=== PATIENT | male | born 1970 | race Caucasian/White ===

== ENCOUNTER → 2016-11-13 | Outpatient (CLI) | payer BC ==
[~2016-11-13] MED LIST: /OXAZ10CA; BABY81CH; FOLI1TAB; HYDR25TA6; LISI10TA4; LOPR50TA; PARO25TAB; THIA100T
[2016-11-15 14:34] LABS: PSA TOTAL 0.6 ng/mL (0.0-4.0)
== END ==
LOC: M SMT 13:28
PROVIDERS: ATTEND Family Medicine
DX: E29.1 Testicular hypofunction (principal)

== ENCOUNTER → 2018-10-07 | Outpatient (CLI) | payer BC | LOC: M SMT 08:10 | DX: Z00.00 Encounter for general adult medical examination without abnormal findings (principal); E55.9 Vitamin D deficiency, unspecified | CPT/HCPCS: 84403 ==

== ENCOUNTER → 2018-11-12 | Outpatient (CLI) | payer BC ==
[2018-11-12 17:30] LABS: BASO % 0.6 % (0.0-1.0); EOS # 0.1 10^3/uL (0.0-0.50); EOS % 1.7 % (0.0-3.0); HEMATOCRIT 43.3 % (42.0-52.0); LYMPH # 2.5 10^3/uL (1.5-4.5); LYMPH % 35.1 % (24.0-44.0); MEAN CORPUSCULAR HEMOGLOBIN 30.9 pg (27.0-33.0); MEAN CORPUSCULAR HGB CONC 34.6 g/dl (32.0-36.5); MEAN CORPUSCULAR VOLUME 89.1 fl (80.0-96.0); MONO # 0.6 10^3/uL (0.0-0.8); MONO % 8.4 % (0.0-5.0); NEUTROPHILS # 3.9 10^3/uL (1.8-7.7); NEUTROPHILS % 53.9 % (36.0-66.0); PLATELET COUNT, AUTOMATED 280 10^3/uL (150-450); RED BLOOD COUNT 4.86 10^6/uL (4.30-6.10); WHITE BLOOD COUNT 7.2 10^3/uL (4.0-10.0)
[2018-11-12 17:32] LABS: ALBUMIN 3.9 GM/DL (3.2-5.2); ALT/SGPT 38 U/L (12-78); AMYLASE 60 U/L (25-115); BILIRUBIN,TOTAL 0.3 MG/DL (0.2-1.0); BLOOD UREA NITROGEN 20 MG/DL (7-18); CALCIUM LEVEL 8.8 MG/DL (8.5-10.1); CARBON DIOXIDE LEVEL 28 MEQ/L (21-32); CHLORIDE LEVEL 106 MEQ/L (98-107); CHOLESTEROL LEVEL 144 MG/DL (<200); CHOLESTEROL RISK RATIO 4.363 (<5); GLOMERULAR FILTRATION RATE > 60.0 (>60); GLUCOSE, FASTING 91 MG/DL (70-100); HDL CHOLESTEROL 33 MG/DL (>40); LDL CHOLESTEROL 81 MG/DL (<100); LIPASE 153 U/L (73-393); NON-HDL-C 111 MG/DL; SODIUM LEVEL 141 MEQ/L (136-145); TOTAL PROTEIN 6.8 GM/DL (6.4-8.2); TRIGLYCERIDES LEVEL 148 MG/DL (<150)
== END ==
LOC: M SMT 14:03
PROVIDERS: ATTEND Physician Assistant
DX: R10.31 Right lower quadrant pain (principal)

== ENCOUNTER → 2018-12-06 | Outpatient (REF) | payer BC ==
[2018-12-06 18:56] LABS: ALBUMIN 4.2 GM/DL (3.2-5.2); ALT/SGPT 34 U/L (12-78); BILIRUBIN,TOTAL 0.8 MG/DL (0.2-1.0); BLOOD UREA NITROGEN 19 MG/DL (7-18); CALCIUM LEVEL 8.8 MG/DL (8.5-10.1); CARBON DIOXIDE LEVEL 29 MEQ/L (21-32); CHLORIDE LEVEL 105 MEQ/L (98-107); CHOLESTEROL LEVEL 179 MG/DL (<200); CHOLESTEROL RISK RATIO 4.589 (<5); CREATININE FOR GFR 1.08 MG/DL (0.70-1.30); FREE T4 1.15 NG/DL (0.76-1.46); GLOMERULAR FILTRATION RATE > 60.0 (>60); GLUCOSE, FASTING 95 MG/DL (70-100); HDL CHOLESTEROL 39 MG/DL (>40); LDL CHOLESTEROL 130 MG/DL (<100); NON-HDL-C 140 MG/DL; POTASSIUM SERUM 4.7 MEQ/L (3.5-5.1); SODIUM LEVEL 139 MEQ/L (136-145); THYROID STIMULATING HORMONE 0.614 uIU/ML (0.358-3.740); TOTAL PROTEIN 7.1 GM/DL (6.4-8.2); TRIGLYCERIDES LEVEL 52 MG/DL (<150)
[2018-12-06 18:58] LABS: TOTAL 25(OH) VITAMIN D 31.6 NG/ML (30.0-100.0)
[2018-12-09 00:09] LABS: PSA TOTAL 0.6 ng/mL (0.0-4.0)
== END ==
LOC: M LABDRAW1 11:37
PROVIDERS: ATTEND Physician Assistant
DX: Z00.00 Encounter for general adult medical examination without abnormal findings (principal); E29.1 Testicular hypofunction; Z13.1 Encounter for screening for diabetes mellitus; Z13.220 Encounter for screening for lipoid disorders

== ENCOUNTER 2019-01-22 19:07 | Inpatient (IN) | payer BC ==
[~2019-01-22] VITALS: Ht 177.8 cm; Wt 91.3 kg
[2019-01-22] MEDS ORDERED: EXCETAB80 PO (19:18)
[2019-01-22 19:31] LABS: MEAN CORPUSCULAR HEMOGLOBIN 30.9 pg (27.0-33.0); MEAN CORPUSCULAR HGB CONC 35.1 g/dl (32.0-36.5); MEAN CORPUSCULAR VOLUME 88.1 fl (80.0-96.0); PLATELET COUNT, AUTOMATED 317 10^3/uL (150-450); RED BLOOD COUNT 5.86 10^6/uL (4.30-6.10); WHITE BLOOD COUNT 12.9 10^3/uL (4.0-10.0)
[2019-01-22 19:40] LABS: HEMATOCRIT 51.6 % (42.0-52.0); HEMOGLOBIN 18.1 g/dl (13.5-17.5)
[2019-01-22] MEDS ORDERED: METOPROLOL TART 50 MG TAB PO ONE (19:45)
[2019-01-22] MEDS: METOPROLOL 5 MG/5 ML VIAL IV SCH ×3 (20:04→20:50)
[2019-01-22 20:15] LABS: BLOOD UREA NITROGEN 17 MG/DL (7-18); CALCIUM LEVEL 9.4 MG/DL (8.5-10.1); CARBON DIOXIDE LEVEL 24 MEQ/L (21-32); CHLORIDE LEVEL 106 MEQ/L (98-107); CREATININE FOR GFR 1.28 MG/DL (0.70-1.30); ETHYL ALCOHOL (ETHANOL) < 0.003 % (0.000-0.010); GLOMERULAR FILTRATION RATE > 60.0 (>60); GLUCOSE, FASTING 111 MG/DL (70-100); MAGNESIUM LEVEL 1.6 MG/DL (1.8-2.4); POTASSIUM SERUM 4.3 MEQ/L (3.5-5.1); SODIUM LEVEL 141 MEQ/L (136-145)
--- NOTE | 2019-01-22 20:20 | REP ---
Clinical: Headache and dizziness . Comparison: None . Findings: The ventricles, sulci, and cisterns are normal in position and appearance. Clayton-white differentiation is maintained. No acute intracranial hemorrhage, mass/mass effect, pathology or trauma/injury. No evidence for acute infarction. No extra-axial fluid collection. Calvarium is intact. Paranasal sinuses and mastoid air cells are clear. Incidental chronic calcifications along the tentorium. Impression: No evidence for acute intracranial pathology or trauma/injury. Electronically Signed by Mikael Flores MD 01/22/2019 08:11 P
[2019-01-22] MEDS ORDERED: MAG SULF 1GM/100ML (MAG RUN) 1 GM in APPROPRIATE DILUENT 1 EA IV ONE (20:30)
[2019-01-22 21:20] LABS: AMPHETAMINES LEVEL URINE NEGATIVE (NEGATIVE); BARBITURATES URINE NEGATIVE (NEGATIVE); BENZODIAZEPINES URINE NEGATIVE (NEGATIVE); CANNABINOIDS URINE NEGATIVE (NEGATIVE); COCAINE METABOLITE URINE NEGATIVE (NEGATIVE); METHADONE URINE NEGATIVE (NEGATIVE); OPIATES URINE NEGATIVE (NEGATIVE); PHENCYCLIDINE URINE NEGATIVE (NEGATIVE)
[2019-01-22] MEDS ORDERED: APIXABAN 5 MG TAB (ELIQUIS) PO ONE (22:15)
[2019-01-22] MEDS ORDERED: FLECAINIDE 50MG TABLET PO ONE (22:15)
[2019-01-22] MEDS ORDERED: TEST1GEL10 TOP (22:17)
[2019-01-22] MEDS ORDERED: TEST1GEL8 TOP (22:20)
[2019-01-22 22:56] LABS: INR 1.06; PROTHROMBIN TIME 13.9 SECONDS (12.1-14.4)
[2019-01-22 22:57] LABS: PARTIAL THROMBOPLASTIN TIME 35.5 SECONDS (25.4-37.6)
[2019-01-22] MEDS ORDERED: NS 1,000 ML IV SCH (23:00)
[2019-01-22 23:27] LABS: TROPONIN I < 0.02 NG/ML (< 0.10)
[2019-01-23] VITALS (8 sets, daily range): BP systolic 96–131; BP diastolic 60–84
[2019-01-23 05:34] LABS: HEMATOCRIT 45.2 % (42.0-52.0); MEAN CORPUSCULAR HEMOGLOBIN 30.6 pg (27.0-33.0); MEAN CORPUSCULAR HGB CONC 34.5 g/dl (32.0-36.5); MEAN CORPUSCULAR VOLUME 88.8 fl (80.0-96.0); PLATELET COUNT, AUTOMATED 270 10^3/uL (150-450); RED BLOOD COUNT 5.09 10^6/uL (4.30-6.10); WHITE BLOOD COUNT 11.4 10^3/uL (4.0-10.0)
[2019-01-23 05:43] LABS: HEMOGLOBIN 15.6 g/dl (13.5-17.5)
[2019-01-23 06:00] LABS: BLOOD UREA NITROGEN 16 MG/DL (7-18); CALCIUM LEVEL 7.9 MG/DL (8.5-10.1); CARBON DIOXIDE LEVEL 27 MEQ/L (21-32); CHLORIDE LEVEL 109 MEQ/L (98-107); CREATININE FOR GFR 1.04 MG/DL (0.70-1.30); GLOMERULAR FILTRATION RATE > 60.0 (>60); GLUCOSE, FASTING 88 MG/DL (70-100); MAGNESIUM LEVEL 1.8 MG/DL (1.8-2.4); POTASSIUM SERUM 3.4 MEQ/L (3.5-5.1); SODIUM LEVEL 143 MEQ/L (136-145); TROPONIN I < 0.02 NG/ML (< 0.10)
[2019-01-23] MEDS: APIXABAN 5 MG TAB (ELIQUIS) PO SCH ×2 (08:05→19:59)
[2019-01-23] MEDS: METOPROLOL TART 25 MG TABLET PO SCH ×2 (08:05→19:59)
--- NOTE | 2019-01-23 08:56 | HPE ---
DATE OF ADMISSION: 01/22/2019 CHIEF COMPLAINT: Dizziness and irregular heartbeat. HISTORY OF PRESENT ILLNESS: The patient is a 48-year-old male who has a history of lone atrial fibrillation back in 2008 which was attributed to EtOH abuse. He has since not consumed any alcohol since 2008 after this episode of lone atrial fibrillation. He also has what appears to be testosterone deficiency. He presented to the emergency room with complaints of what started this morning as irregular heartbeat, dizziness. He denies any chest pain or shortness of breath. He does not endorse his irregular heartbeat as palpitations. He just states that he felt an abnormal heartbeat. He denies any loss of consciousness. He was previously followed by Dr. Cardoza. Once his atrial fibrillation had resolved it was attributed to alcohol abuse and he was never again followed up after several visits and he was noted to be in sinus rhythm. He comes in, he is in atrial fibrillation with rapid ventricular response (RVR). He was given several doses of IV Lopressor which allowed him to become rate controlled. [employer] Dr. Kan was consulted in the emergency room who recommended the patient be given flecainide and Eliquis in an attempt to cardiovert the patient chemically. Echocardiogram to be added. The patient is aware that these symptoms started within the last 48 hours. He denies any cough. He denies any fevers, chills. No abdominal pain, constipation, diarrhea or urinary symptoms. He does not appear acutely toxic. He denies any alcohol abuse. Notably he said the only thing different that he has done is taken Excedrin last night and this morning for what he considered be a migraines headaches. PAST MEDICAL HISTORY: See history of present illness. PAST SURGICAL HISTORY: None. ALLERGIES: No known drug allergies. HOME MEDICATIONS: - testosterone replacement therapy, he uses a gel SOCIAL HISTORY: Former alcohol abuse. Denies illicit drug use. FAMILY HISTORY: Cerebrovascular accident (CVA). REVIEW OF SYSTEMS: A 12 point review of systems was completed, all of which were negative except those listed in the history of present illness. VITAL SIGNS ON ADMISSION: Temperature 98, pulse rate of 119, respirations 18, blood pressure 103/75, satting at 100% on room air. PHYSICAL EXAMINATION: GENERAL: Well nourished, in no apparent distress. HEAD: Normocephalic, atraumatic. EYES: Extraocular movements are intact. Pupils equal, round, reactive to light. NECK: Supple. No jugular venous pressure (JVP). LUNGS: Clear to auscultation. No crackles, wheezes, rales or rhonchi. CARDIOVASCULAR: Irregularly irregular rhythm. Normal S1 and S2. No murmurs, gallops, or rubs. ABDOMEN: Soft, nontender, nondistended. Positive bowel sounds. No rebound or guarding. EXTREMITIES: No pitting edema or calf tenderness. SKIN: Intact. No rashes, lesions or breakdowns. NEUROLOGICAL EXAM: Alert and oriented times three. No focal deficits appreciated on exam. LABS AND IMAGING COMPLETED IN THE EMERGENCY ROOM: White count of 12, hemoglobin and hematocrit of 18/51, platelet count of 317. Coags within normal limits. BUN and creatinine of 17/1.28. Mag of 1.6, TSH within normal limits. Urine toxicology is negative. Blood alcohol level is unremarkable. IMAGING: CT of the head shows no acute intracranial pathology. ASSESSMENT/PLAN: Atrial fibrillation with rapid ventricular response (RVR), rule out ACS. Will recycle troponins, EKG, tele. Will get an echocardiogram. Give him one dose of flecainide. CHADS-VASc score is 0. Cardiology would like to attempt to chemically cardiovert the patient, so will place the patient on Eliquis 5 mg twice a day. Cardiology to follow-up in the a.m. This could possibly be due to electrolyte abnormalities. Will replenish his magnesium and recheck in the a.m. TSH already within normal limits. There appears to be no infectious process ongoing. The patient appears nontoxic. Supportive deep vein thrombosis (DVT) prophylaxis, on Eliquis. Gastrointestinal (GI) prophylaxis not indicated. Diet. Cardiac. Patient is to be seen by cardiology in the a.m. to decide if extra doses of flecainide need to be continued for cardioversion.
[2019-01-23] MEDS: FLECAINIDE 50MG TABLET PO SCH ×2 (10:12→19:59)
--- NOTE | 2019-01-23 11:06 | ECGEPIP ---
Stationary ECG Study [facility] - ED Test Date: 2019-01-22 Pat Name: ALLISON WARD Department: Room: [place] [address] Gender: M Foundation Assistant: MELLO : 1970 Requested By: Joe Leo Order Number: [id number] Reading MD: Mauricio Gasca Measurements Intervals [place] Rate: 129 P: WI: 0 QRS: 48 QRSD: 89 T: -8 QT: 275 QTc: 403 Interpretive Statements ATRIAL FIBRILLATION WITH RAPID VENTRICULAR RESPONSE NONSPECIFIC ST & T-WAVE ABNORMALITY ABNORMAL RHYTHM ECG DELAYED R WAVE PROGRESSION CW 08/21/14 RATE INCREASED RHYTHM CHANGE Electronically Signed On 01-23-2019 11:06:03 EDT by Mauricio Gasca
[2019-01-23] MEDS ORDERED: FLECAINIDE 50MG TABLET PO ONE (14:00)
[2019-01-23] MEDS ORDERED: POTASSIUM CHLORIDE 10 MEQ SR TABLET PO ONE ×2 (14:15→18:00)
--- NOTE | 2019-01-23 23:05 | ECGEPIP ---
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 HEART RATE IS NOW SLOWER OTHERWISE NO SIGNIFICANT CHANGES Electronically Signed On 01-23-2019 23:05:10 EDT by Yohannes Kan
--- NOTE | 2019-01-24 03:00 | CR ---
DATE OF CONSULTATION: 01/23/2019 CARDIOLOGY CONSULTATION: REFERRING PROVIDER: Snow Carl DO REASON FOR CONSULTATION: Atrial fibrillation. HISTORY OF PRESENT ILLNESS: A 48-year-old male with a history of paroxysmal atrial fibrillation about 10 years ago and, at that time, that was associated with a binge of alcohol. He has not been drinking since that time and has been doing well without any episode of paroxysmal atrial fibrillation. On the day prior to coming to the hospital, he was having a headache and took one Excedrin, which he repeated on the morning of his visit to the emergency room (ER). On that morning, he started having a funny sensation in the chest associated with generalized weakness; and because he was not getting better, he came to the ER in the early evening hours. He was found to be in atrial fibrillation with a rapid ventricular rate, and cardiology consult was called. He was treated in the ER with IV Lopressor as well as oral Lopressor. After discussing with the ER provider, he was given one dose of flecainide 50 mg by mouth daily and admitted to progressive care unit (PCU) for further management and monitoring. When I saw Mr. Kevin Heller this morning, he was supine in bed in no acute distress at rest. He stated he feels better, but his heart rate is still irregular. It is not going fast. He denies any associated chest pain, syncope, or near syncope. He, however, was diaphoretic while at home. Upon arrival at the ER, his vital signs revealed a blood pressure of 103/75 and his pulse was reported at that time between 140 and 150 beats per minute. He has no pedal edema, orthopnea, syncope, or near syncope. He denies any bleeding. He has no cough, hemoptysis, or fever. He has no nausea, vomiting, diarrhea, melena, or hematemesis. There is no active swelling or redness of the joints. MEDICATIONS AT HOME: Testosterone replacement gel; otherwise, unknown. PAST SURGICAL HISTORY: Positive for hernia repair, umbilical and inguinal. FAMILY HISTORY: Positive for heart disease but did not elaborate. CURRENT MEDICATIONS: - metoprolol tartrate 25 mg by mouth twice a day - apixaban 5 mg by mouth twice a day SOCIAL HISTORY: Patient denies any smoking or ethyl alcohol (EtOH) abuse. He also had cut back significantly caffeine in his diet. ALLERGIES: He has no known drug allergies. ADVANCE DIRECTIVES: Patient is a FULL CODE. PHYSICAL EXAMINATION: Patient is alert and oriented, in no acute distress at rest, and his vital signs when I saw him revealed a blood pressure of 124/65 with a pulse of 90, respirations 18, and his maximum temperature was 98.2 degrees Fahrenheit with an oxygen saturation of 97% on room air. Examination of the head: Atraumatic. Neck is supple; no jugular venous distention (JVD) or carotid bruits. The lungs are clear bilaterally on auscultation without any wheezing or crackles. The heart examination revealed normal S1 and S2 without gallops. The point of maximum impulse (PMI) is not displaced. There is no rub. I could not appreciate any murmurs. Abdomen is soft and nontender; bowel sounds are active. Extremities revealed no pedal edema. No cyanosis or clubbing. Peripheral pulses are +2 and equal. Neurological examination is negative for focal deficit. LABS: CBC revealed WBC of 11.4, hemoglobin 15.6, hematocrit 45.2, and platelets 270,000. BMP done today, 01/23/2019, revealed a sodium of 143, potassium 3.4, chloride 109, CO2 of 27, BUN 16, creatinine 1.04, GFR more than 60, fasting glucose 88, calcium 7.9. Serum magnesium is 1.8. Serum magnesium on admission was 1.6. Serum troponin is normal, less than 0.02. Serum TSH is 0.670. Serum potassium on admission was 4.3. PT on admission was 13.9 with an INR of 1.05 and a PTT of 35.5. Toxicology screening was negative. Head CT on admission revealed no evidence of acute intracranial pathology or trauma/injury. Electrocardiogram on admission in the ER revealed atrial fibrillation at a rate of 129 beats per minute and nonspecific ST-T abnormalities, mild intraventricular conduction delay (IVCD). IMPRESSION: 1. Atrial fibrillation, paroxysmal in nature, and at this present time while I am dictating the note, I was just informed by the nurse patient is in normal sinus rhythm. We will continue with the Eliquis as well as the beta-bjorn/metoprolol tartrate and the flecainide. He had an echocardiogram done just now, and it will be reviewed; then further recommendation will be given. He most likely will not need the Eliquis for a long time, but I would prefer that he be discharged on Eliquis for now instead of aspirin for better coverage against thromboembolic events. Otherwise, we will have to give him the aspirin plus Plavix. 2. Status post hypomagnesemia. 3. Hypokalemia, and this is being addressed. 4. Testosterone deficiency, on supplement. It was a pleasure to participate in the care of . Kevin Heller for his underlying cardiac condition. He seems to be stable from a cardiac point of view and might be able to be discharged home later today. Case was discussed earlier with his hospitalist.
[2019-01-24 04:00] VITALS: BP 111/59
[2019-01-24 05:46] LABS: HEMATOCRIT 47.7 % (42.0-52.0); HEMOGLOBIN 15.9 g/dl (13.5-17.5); MEAN CORPUSCULAR HEMOGLOBIN 30.5 pg (27.0-33.0); MEAN CORPUSCULAR HGB CONC 33.3 g/dl (32.0-36.5); MEAN CORPUSCULAR VOLUME 91.4 fl (80.0-96.0); PLATELET COUNT, AUTOMATED 244 10^3/uL (150-450); RED BLOOD COUNT 5.22 10^6/uL (4.30-6.10); WHITE BLOOD COUNT 8.4 10^3/uL (4.0-10.0)
[2019-01-24 06:09] LABS: BLOOD UREA NITROGEN 17 MG/DL (7-18); CALCIUM LEVEL 8.4 MG/DL (8.5-10.1); CARBON DIOXIDE LEVEL 27 MEQ/L (21-32); CHLORIDE LEVEL 111 MEQ/L (98-107); CREATININE FOR GFR 1.12 MG/DL (0.70-1.30); GLOMERULAR FILTRATION RATE > 60.0 (>60); GLUCOSE, FASTING 85 MG/DL (70-100); POTASSIUM SERUM 4.4 MEQ/L (3.5-5.1); SODIUM LEVEL 144 MEQ/L (136-145)
[2019-01-24 08:00] VITALS: BP 125/79
[2019-01-24] MEDS ORDERED: ELIQ5TAB PO (08:21)
[2019-01-24] MEDS ORDERED: FLEC25TA PO (08:21)
[2019-01-24] MEDS ORDERED: METO1TAB87 PO (08:21)
[2019-01-24] MEDS: APIXABAN 5 MG TAB (ELIQUIS) PO SCH (08:58)
[2019-01-24 08:59] VITALS: BP 125/79
[2019-01-24] MEDS: METOPROLOL TART 25 MG TABLET PO SCH (08:59)
[2019-01-24] MEDS: FLECAINIDE 50MG TABLET PO SCH (08:59)
--- NOTE | 2019-01-24 09:59 | ECHO ---
DATE OF PROCEDURE: 01/23/2019 DATE OF : 1970 AGE: 48 REFERRING PROVIDER: Dr. Spence Thursday. PATIENT LOCATION: Room 3211. REASON FOR ECHOCARDIOGRAM: Abnormal EKG. 2D MEASUREMENTS: IVS: 1.0 cm LV: 4.8 cm LVPW: 1.1 cm LA: 4.0 cm Aorta: 3.4 cm IVC: 1.9 cm DOPPLER MEASUREMENTS: Peak velocity across the aortic valve: 0.81 m/s Peak velocity across the LVOT: 0.84 m/s Mitral E: 0.60 Mitral A: 0.44 Ratio 1.4 Maximum tricuspid valve velocity: 2.1 m/s 2D COMMENTS: 1. Normal left ventricular size and systolic function. Left ventricular wall thickness appear to be increased. The estimated global left ventricular systolic ejection fraction is 65% to 70%. 2. Borderline enlarged left atrium at 4.0 cm. Normal right atrium and right ventricle. 3. The atrial septum appeared to be normal without evidence of defect or shunt. 4. Normal aortic root. 5. No pericardial effusion seen. 6. The aortic valve, mitral valve, tricuspid valve, and pulmonary valve appear to be normal. The proximal pulmonary artery branches also appear to be normal. 7. The inferior vena cava was normal in size, central venous pressure is most likely normal. DOPPLER: It detects mild to moderate mitral regurgitation and trace tricuspid regurgitation. The calculated pulmonary artery systolic pressure was normal. Assessment of the left ventricular diastolic function appeared to be normal. IMPRESSION: 1. Normal global left ventricular systolic and diastolic function. , there was mild concentric left ventricular hypertrophy. 2. Mildly dilated left atrium with mild to moderate mitral regurgitation. 3. Trace tricuspid regurgitation with a normal calculated pulmonary artery systolic pressure. 4. Patient while having the echocardiogram, spontaneously cardioverted to a normal sinus rhythm.
--- NOTE | 2019-01-24 15:43 | IPN ---
DATE OF VISIT: 01/23/2019 SUBJECTIVE: The patient is seen and examined in the room today. The patient denies any chest pain or palpitations, denies any shortness of breath. The patient had atrial fibrillation in 2007 due to alcohol usage and he states since then he has not had significant alcohol consumption. OBJECTIVE: VITAL SIGNS: Temperature 98.2, pulse 90, respirations 18, blood pressure 124/65, pulse ox 97% on room air. GENERAL: The patient is alert and awake and comfortable. HEENT: Normocephalic, atraumatic. Extraocular movements grossly intact. CARDIOVASCULAR: Irregular, irregular. Positive S1, S2. LUNGS: Clear to auscultation bilaterally. ABDOMEN: Soft, nontender, nondistended. Bowel sounds present. EXTREMITIES: No edema appreciated. LABORATORY DATA: WBC 11.4, hemoglobin 15.6, hematocrit 45.2, platelet count of 270. Sodium 143, potassium 3.4, chloride 109, carbon dioxide 27, BUN 16, creatinine 104, GFR greater than 60, fasting glucose 88. Calcium 7.9, magnesium 1.8, troponin I is less than 0.02. 1. Atrial fibrillation with rapid ventricular rate (RVR). Troponin has been negative. Will follow with echocardiogram, cardiology consulted. The patient is currently on beta bjorn. The patient will receive additional dose of flecainide per cardiology. Currently will attempt to chemical convert the patient. The patient denies any recent alcohol history. TSH remains in the normal range. Denies any recent medication change or lifestyle modifications. 2. Mild leukocytosis. Suspected due to physical stress. Continue to monitor. No obvious signs of infections. 3. Mild hypokalemia. Continue to follow levels, supplement as needed. 4. Deep venous thrombosis (DVT) prophylaxis. On Eliquis.
--- NOTE | 2019-01-24 19:22 | DSES ---
DATE OF ADMISSION: 01/22/2019 DATE OF DISCHARGE: 01/24/2019 PRIMARY CARE PROVIDER: Dr. Farah CONSULTANTS: Cardiology DISCHARGE DIAGNOSES: 1. Atrial fibrillation with rapid ventricular response. 2. Mild leukocytosis. 3. Mild hypokalemia. 4. Remote history of alcohol abuse. HOSPITAL COURSE: The patient is a 48-year-old gentleman who presented to [facility] on 01/22/2019 with the complaint of dizziness and irregular heart rate. The patient was admitted under the hospitalist service on the telemetry floor for atrial fibrillation with rapid ventricular response. Cardiology consulted. The patient was started on rate control medications. Later, the patient's heart rate converted to sinus, and the patient was determined stable for discharge on 01/24/2019 with recommendations to continue heart rate medication. The patient continued taking anticoagulation. The patient should followup with cardiology in 2 weeks. OBJECTIVE: On the day of discharge, temperature 99.2, pulse 67, respirations 20, blood pressure 125/79, pulse oximetry 100% on room air. LABORATORY DATA: WBC 8.4, hemoglobin 15.9, hematocrit 47.7, platelet count is 244, sodium is 144, potassium 4.4, chloride 111, carbon dioxide 27, BUN 17, creatinine 1.12, GFR greater than 60, fasting glucose 85. During the hospitalization, troponin was less than 0.02 times three sets. TSH is 0.67. Urine toxicology negative. Alcohol level is negative. IMAGING STUDIES: CT of the head without contrast showed no evidence of acute intracranial pathology or trauma/injury. DISCHARGE MEDICATIONS: - Eliquis 5 mg by mouth twice a day - flecainide 50 mg by mouth every 12 hours - metoprolol tartrate 75 mg by mouth twice a day - testosterone pump 1% gel four pumps topical at night DISCHARGE INSTRUCTIONS: Discontinue lines. Discharge home. Activity as tolerated. Diet as tolerated. The patient should follow with primary care provider in 1 to 2 weeks. The patient should followup with Dr. Kan in 2 weeks. DISCHARGE CONDITION: Fair. DISCHARGE TIME: Greater than 30 minutes.
== END 2019-01-24 10:44 | disposition home or self-care (01) | DRG 201 ==
LOC: M ED 19:07 → M ED INP 22:46 → M PCU 01-23 00:15
PROVIDERS: ADMIT Internal Medicine; ATTEND Internal Medicine
DX: I48.91 Unspecified atrial fibrillation (principal); E83.42 Hypomagnesemia; D72.829 Elevated white blood cell count, unspecified; E87.6 Hypokalemia; Z79.899 Other long term (current) drug therapy; E29.1 Testicular hypofunction

== ENCOUNTER → 2019-06-28 | Outpatient (CLI) | payer BC ==
[~2019-06-28] MED LIST changes: -/OXAZ10CA; +ELIQ5TAB PO; +EXCETAB80 PO; +FLEC25TA PO; +METO1TAB87 PO; +OXAZ10CA25; +TEST1GEL10 TOP; +TEST1GEL8 TOP
--- NOTE | 2019-06-30 12:54 | SLEEPHOME ---
DATE OF STUDY: 06/29/2019 ORDERING PROVIDER: Ron Kathleen Diagnostic home sleep testing was performed due to concern for the obstructive sleep apnea syndrome in this patient with a history of excessive somnolence. Bly sleepiness score of 22. For testing, a nocturnal T3 respiratory monitoring device was used. Continuous record was made of pulse, oxygen saturation, airflow, chest and abdominal strain and body position. 9 hours and 59 minutes of data were reviewed. There were 5 hours and 34 minutes marked as time in bed. During the interval marked time in bed, there were 77 respiratory events identified of 10 seconds in duration or greater for a respiratory event index of 13.8. The events were primarily obstructive, 11 mixed and central apneas were seen. Baseline pulse rate 59 beats per minute, pulse rate ranged 50-86. Baseline saturation 93%. Saturations fell to 84%. Testing was performed in both the supine and non-supine positions. IMPRESSION: Abnormal home sleep testing with repetitive respiratory events and oxygen desaturations to 84% with a respiratory event index of 13.8 is consistent with the obstructive sleep apnea syndrome. RECOMMENDATION: The patient should be encouraged to undergo formal sleep evaluation. [facility]
== END ==
LOC: M SLEEP HO 10:29
PROVIDERS: ATTEND Physician Assistant
DX: G47.8 Other sleep disorders (principal)

== ENCOUNTER → 2019-06-30 | Outpatient (CLI) | payer BC ==
[2019-06-30 10:26] LABS: BASO % 0.5 % (0.0-1.0); EOS # 0.1 10^3/uL (0.0-0.5); EOS % 1.6 % (0.0-3.0); HEMATOCRIT 46.2 % (42.0-52.0); HEMOGLOBIN 15.9 g/dl (13.5-17.5); LYMPH # 1.7 10^3/uL (1.5-5.0); MEAN CORPUSCULAR HEMOGLOBIN 31.7 pg (27.0-33.0); MEAN CORPUSCULAR HGB CONC 34.4 g/dl (32.0-36.5); MONO # 0.5 10^3/uL (0.0-0.8); NEUTROPHILS % 63.4 % (36.0-66.0); PLATELET COUNT, AUTOMATED 236 10^3/uL (150-450); RED BLOOD COUNT 5.02 10^6/uL (4.30-6.10); WHITE BLOOD COUNT 6.3 10^3/uL (4.0-10.0)
[2019-06-30 10:34] LABS: ALBUMIN 3.9 GM/DL (3.2-5.2); ALT/SGPT 33 U/L (12-78); BILIRUBIN,TOTAL 1.2 MG/DL (0.2-1.0); BLOOD UREA NITROGEN 15 MG/DL (7-18); CALCIUM LEVEL 9.1 MG/DL (8.5-10.1); CARBON DIOXIDE LEVEL 30 MEQ/L (21-32); CHLORIDE LEVEL 107 MEQ/L (98-107); CREATININE FOR GFR 0.92 MG/DL (0.70-1.30); GLOMERULAR FILTRATION RATE > 60.0 (>60); GLUCOSE, FASTING 86 MG/DL (70-100); POTASSIUM SERUM 4.3 MEQ/L (3.5-5.1); SODIUM LEVEL 142 MEQ/L (136-145); TOTAL PROTEIN 7.1 GM/DL (6.4-8.2)
[2019-07-02 00:06] LABS: PSA TOTAL 0.7 ng/mL (0.0-4.0); TESTOSTERONE FREE (DIRECT) 10.6 pg/mL (6.8-21.5)
== END ==
LOC: M SMT 08:00
PROVIDERS: ATTEND Family Medicine
DX: E29.1 Testicular hypofunction (principal); E55.9 Vitamin D deficiency, unspecified; I48.0 Paroxysmal atrial fibrillation

== ENCOUNTER → 2019-12-02 | Outpatient (REF) | payer BC ==
[2019-12-02 15:48] LABS: BASO % 0.4 % (0.0-1.0); EOS # 0.2 10^3/uL (0.0-0.5); EOS % 2.1 % (0.0-3.0); HEMOGLOBIN 16.1 g/dl (13.5-17.5); LYMPH # 2.4 10^3/uL (1.5-5.0); LYMPH % 34.3 % (24.0-44.0); MEAN CORPUSCULAR HEMOGLOBIN 30.8 pg (27.0-33.0); MEAN CORPUSCULAR HGB CONC 33.5 g/dl (32.0-36.5); MONO # 0.6 10^3/uL (0.0-0.8); MONO % 8.1 % (0.0-5.0); NEUTROPHILS # 3.9 10^3/uL (1.5-8.5); PLATELET COUNT, AUTOMATED 268 10^3/uL (150-450); RED BLOOD COUNT 5.22 10^6/uL (4.30-6.10); WHITE BLOOD COUNT 7.1 10^3/uL (4.0-10.0)
[2019-12-02 16:27] LABS: ALT/SGPT 35 U/L (12-78); BILIRUBIN,TOTAL 0.6 MG/DL (0.2-1.0); BLOOD UREA NITROGEN 15 MG/DL (7-18); CALCIUM LEVEL 8.9 MG/DL (8.5-10.1); CARBON DIOXIDE LEVEL 30 MEQ/L (21-32); CHLORIDE LEVEL 105 MEQ/L (98-107); CREATININE FOR GFR 0.94 MG/DL (0.70-1.30); FREE T4 1.23 NG/DL (0.76-1.46); GLOMERULAR FILTRATION RATE > 60.0 (>60); GLUCOSE, FASTING 82 MG/DL (70-100); POTASSIUM SERUM 4.1 MEQ/L (3.5-5.1); SODIUM LEVEL 140 MEQ/L (136-145)
[2019-12-07 00:06] LABS: PSA TOTAL 0.6 ng/mL (0.0-4.0); TESTOSTERONE FREE (DIRECT) 17.7 pg/mL (6.8-21.5)
== END ==
LOC: M LABDRAW1 15:40
PROVIDERS: ATTEND Physician Assistant
DX: I48.0 Paroxysmal atrial fibrillation (principal); E29.1 Testicular hypofunction

== ENCOUNTER → 2021-01-10 | Outpatient (REF) | payer BC ==
[2021-01-10 12:52] LABS: BASO # 0.1 10^3/uL (0.0-0.2); BASO % 0.7 % (0.0-1.0); EOS # 0.1 10^3/uL (0.0-0.5); EOS % 1.6 % (0.0-3.0); HEMATOCRIT 46.4 % (42.0-52.0); LYMPH # 1.8 10^3/uL (1.5-5.0); LYMPH % 23.3 % (24.0-44.0); MEAN CORPUSCULAR HEMOGLOBIN 31.4 pg (27.0-33.0); MEAN CORPUSCULAR HGB CONC 34.5 g/dl (32.0-36.5); MONO # 0.7 10^3/uL (0.0-0.8); MONO % 9.6 % (2.0-8.0); NEUTROPHILS # 4.8 10^3/uL (1.5-8.5); NEUTROPHILS % 64.4 % (36.0-66.0); PLATELET COUNT, AUTOMATED 272 10^3/uL (150-450); WHITE BLOOD COUNT 7.5 10^3/uL (4.0-10.0)
[2021-01-10 13:31] LABS: ALBUMIN 3.9 GM/DL (3.2-5.2); ALT/SGPT 29 U/L (12-78); BILIRUBIN,TOTAL 0.5 MG/DL (0.2-1.0); BLOOD UREA NITROGEN 20 MG/DL (7-18); CALCIUM LEVEL 8.7 MG/DL (8.5-10.1); CARBON DIOXIDE LEVEL 30 MEQ/L (21-32); CHLORIDE LEVEL 106 MEQ/L (98-107); CREATININE FOR GFR 0.86 MG/DL (0.70-1.30); FREE T4 0.94 NG/DL (0.76-1.46); GLOMERULAR FILTRATION RATE > 60.0 (>60); GLUCOSE, FASTING 82 MG/DL (70-100); POTASSIUM SERUM 4.7 MEQ/L (3.5-5.1); SODIUM LEVEL 140 MEQ/L (136-145); TOTAL 25(OH) VITAMIN D 23.4 NG/ML (30.0-100.0); TOTAL PROTEIN 6.7 GM/DL (6.4-8.2)
[2021-01-10 13:34] LABS: HEMOGLOBIN A1c 5.1 %
== END ==
LOC: M LABDRWAD 12:30
PROVIDERS: ATTEND Physician Assistant
DX: E29.1 Testicular hypofunction (principal); Z13.29 Encounter for screening for other suspected endocrine disorder; Z11.3 Encounter for screening for infections with a predominantly sexual mode of transmission

== ENCOUNTER → 2021-10-24 | Outpatient (CLI) | payer BC ==
--- NOTE | 2021-10-28 20:56 | SLEEPCENT ---
DATE: 10/24/2021 ORDERED BY: Arabella Heller NP Nocturnal polysomnography was performed for evaluation of sleep physiology in this patient with a history of excessive somnolence and abnormal home sleep testing results. Eight hours and 13 minutes of data were reviewed. There were 440.5 minutes of sleep identified. Sleep latency was mildly prolonged at 27 minutes. REM latency was short at 51 minutes. Sleep architecture was good with five REM cycles. Overall sleep efficiency was 90.3%. The electrocardiogram showed a sinus rhythm with an average heart rate of 65 beats per minute. Rate ranged 55-80. EEG showed normal waveforms for wake and sleep. There were 89 respiratory events identified of 10 seconds in duration or greater for an apnea-hypopnea index of 12.1. The events were obstructive, not exclusive to sleep stage, more frequent in the supine posture but not exclusive to that position. Arousals from respiratory events occurred 2.6 times per hour. There was some minor limb activity in the EMG leads. Limb movement arousal index 2.7. IMPRESSIONS: Obstructive sleep apnea syndrome (G47.33). Apnea-hypopnea index 12.1. RECOMMENDATION: The patient should be encouraged to return to [facility] for pressure therapy. In the interim, alcohol and sedative avoidance should be practiced and caution exercised during the operation of motor vehicles. cc: JOEY DENNY DO
== END ==
LOC: M SLEEP 20:00
PROVIDERS: ATTEND Nurse Practitioner Adult Health
DX: G47.30 Sleep apnea, unspecified (principal)

== ENCOUNTER → 2022-04-17 | Outpatient (CLI) | payer BC ==
[2022-04-17 10:34] LABS: BASO % 0.4 % (0.0-1.0); EOS # 0.1 10^3/uL (0.0-0.5); EOS % 1.3 % (0.0-3.0); HEMATOCRIT 42.3 % (42.0-52.0); HEMOGLOBIN 14.3 g/dl (13.5-17.5); LYMPH # 1.2 10^3/uL (1.5-5.0); LYMPH % 22.6 % (24.0-44.0); MEAN CORPUSCULAR HEMOGLOBIN 30.3 pg (27.0-33.0); MEAN CORPUSCULAR HGB CONC 33.8 g/dl (32.0-36.5); MEAN CORPUSCULAR VOLUME 89.6 fl (80.0-96.0); MONO # 0.8 10^3/uL (0.0-0.8); MONO % 15.4 % (2.0-8.0); NEUTROPHILS # 3.2 10^3/uL (1.5-8.5); NEUTROPHILS % 60.1 % (36.0-66.0); PLATELET COUNT, AUTOMATED 187 10^3/uL (150-450); RED BLOOD COUNT 4.72 10^6/uL (4.30-6.10); WHITE BLOOD COUNT 5.4 10^3/uL (4.0-10.0)
[2022-04-17 11:15] LABS: CHOLESTEROL RISK RATIO 5.531 (<5); FREE T4 1.04 NG/DL (0.76-1.46); THYROID STIMULATING HORMONE 0.96 uIU/ML (0.358-3.740)
[2022-04-18 20:07] LABS: PSA TOTAL 0.6 ng/mL (0.0-4.0); TESTOSTERONE FREE (DIRECT) 12.1 pg/mL (7.2-24.0)
== END ==
LOC: M PLALAB 08:02
PROVIDERS: ATTEND Family Medicine
DX: E29.1 Testicular hypofunction (principal); Z13.220 Encounter for screening for lipoid disorders; Z13.0 Encounter for screening for diseases of the blood and blood-forming organs and certain disorders involving the immune mechanism; Z13.29 Encounter for screening for other suspected endocrine disorder

== ENCOUNTER → 2022-11-10 | Outpatient (CLI) | payer BC ==
[2022-11-10 13:41] LABS: BASO % 0.5 % (0.0-1.0); EOS # 0.1 10^3/uL (0.0-0.5); EOS % 1.2 % (0.0-3.0); HEMATOCRIT 45.6 % (42.0-52.0); HEMOGLOBIN 15.3 g/dl (13.5-17.5); LYMPH # 2.2 10^3/uL (1.5-5.0); LYMPH % 25.9 % (24.0-44.0); MEAN CORPUSCULAR HGB CONC 33.6 g/dl (32.0-36.5); MEAN CORPUSCULAR VOLUME 92.5 fl (80.0-96.0); MONO # 0.7 10^3/uL (0.0-0.8); MONO % 8.7 % (2.0-8.0); NEUTROPHILS # 5.4 10^3/uL (1.5-8.5); NEUTROPHILS % 63.3 % (36.0-66.0); PLATELET COUNT, AUTOMATED 265 10^3/uL (150-450); RED BLOOD COUNT 4.93 10^6/uL (4.30-6.10); WHITE BLOOD COUNT 8.5 10^3/uL (4.0-10.0)
[2022-11-10 14:12] LABS: MAGNESIUM LEVEL 1.6 MG/DL (1.8-2.4)
[2022-11-10 14:14] LABS: ALBUMIN 3.9 G/DL (3.2-5.2); ALKALINE PHOSPHATASE 80 U/L (46-116); ALT/SGPT 20 U/L (7.0-40); AST/SGOT 18 U/L (<34); BILIRUBIN,TOTAL 0.7 MG/DL (0.3-1.2); BLOOD UREA NITROGEN 17 MG/DL (9-23); CALCIUM LEVEL 8.9 MG/DL (8.5-10.1); CARBON DIOXIDE LEVEL 28 MMOL/L (20-31); CHLORIDE LEVEL 106 MMOL/L (98-107); CHOLESTEROL LEVEL 178 MG/DL (<200); CHOLESTEROL RISK RATIO 4.93 (<5); CREATININE FOR GFR 0.91 MG/DL (0.70-1.30); GLOMERULAR FILTRATION RATE > 60.0 (>56); GLUCOSE, FASTING 87 MG/DL (60-100); HDL CHOLESTEROL 36.1 MG/DL (>40); LDL CHOLESTEROL 118.7 MG/DL (<100); NON-HDL-C 142 MG/DL; POTASSIUM SERUM 4.9 MMOL/L (3.5-5.1); SODIUM LEVEL 141 MMOL/L (136-145); TOTAL PROTEIN 6.7 G/DL (5.7-8.2); TRIGLYCERIDES LEVEL 116 MG/DL (<150)
[2022-11-10 14:17] LABS: TOTAL 25(OH) VITAMIN D 24.4 NG/ML (20.0-100.0)
[2022-11-10 14:30] LABS: C REACTIVE PROTEIN QUANTITATIV < 0.40 MG/DL (<1.0)
[2022-11-10 14:32] LABS: PTH INTACT 55.6 PG/ML (18.5-88.0)
[2022-11-10 14:41] LABS: PROLACTIN 5.83 NG/ML (2.1-17.7)
[2022-11-10 14:42] LABS: FOLLICLE STIMULATING HORMONE 1.6 mIU/ML (1.4-18.1); LUTEINIZING HORMONE 0.8 mIU/ML (1.5-9.3)
[2022-11-10 14:43] LABS: CPK CREATINE PHOSPHOKINASE 309 U/L (46-171)
[2022-11-11 16:08] LABS: APOLIPOPROTEIN A-1 118 mg/dL (101-178); APOLIPOPROTEIN B 112 mg/dL (<90); APOLIPOPROTEIN B/A-1 RATIO 0.9 ratio (0.0-0.7); TESTOSTERONE FREE (DIRECT) 10.5 pg/mL (7.2-24.0)
== END ==
LOC: M PLALAB 11:01
PROVIDERS: ATTEND Family Medicine
DX: I10 Essential (primary) hypertension (principal); G47.33 Obstructive sleep apnea (adult) (pediatric); E55.9 Vitamin D deficiency, unspecified; N52.9 Male erectile dysfunction, unspecified; E29.1 Testicular hypofunction; I48.0 Paroxysmal atrial fibrillation; Z12.5 Encounter for screening for malignant neoplasm of prostate; Z79.01 Long term (current) use of anticoagulants
CPT/HCPCS: 36415; 80053; 80061; 82172; 82306; 82550; 82670; 83001; 83002; 83735; 83880; 83970; 84146; 84402; 84403; 85025; 86140; G0103

== ENCOUNTER → 2023-02-06 | Outpatient (CLI) | payer BC ==
[2023-02-06 15:46] LABS: BASO % 0.3 % (0.0-1.0); EOS # 0.2 10^3/uL (0.0-0.5); EOS % 1.2 % (0.0-3.0); HEMATOCRIT 45.9 % (42.0-52.0); HEMOGLOBIN 15.4 g/dl (13.5-17.5); LYMPH # 2.3 10^3/uL (1.5-5.0); LYMPH % 16.3 % (24.0-44.0); MEAN CORPUSCULAR HEMOGLOBIN 31.3 pg (27.0-33.0); MEAN CORPUSCULAR HGB CONC 33.6 g/dl (32.0-36.5); MEAN CORPUSCULAR VOLUME 93.3 fl (80.0-96.0); MONO # 1.1 10^3/uL (0.0-0.8); MONO % 7.4 % (2.0-8.0); NEUTROPHILS # 10.6 10^3/uL (1.5-8.5); NEUTROPHILS % 74.4 % (36.0-66.0); PLATELET COUNT, AUTOMATED 274 10^3/uL (150-450); RED BLOOD COUNT 4.92 10^6/uL (4.30-6.10); WHITE BLOOD COUNT 14.2 10^3/uL (4.0-10.0)
[2023-02-06 15:55] LABS: ALBUMIN 3.8 G/DL (3.2-5.2); ALKALINE PHOSPHATASE 81 U/L (46-116); ALT/SGPT 18 U/L (7.0-40); AST/SGOT 10 U/L (<34); BILIRUBIN,TOTAL 0.4 MG/DL (0.3-1.2); BLOOD UREA NITROGEN 10 MG/DL (9-23); CALCIUM LEVEL 8.8 MG/DL (8.5-10.1); CARBON DIOXIDE LEVEL 29 MMOL/L (20-31); CHLORIDE LEVEL 104 MMOL/L (98-107); GLOMERULAR FILTRATION RATE > 60.0 (>56); GLUCOSE, FASTING 91 MG/DL (60-100); MAGNESIUM LEVEL 1.5 MG/DL (1.8-2.4); POTASSIUM SERUM 4.2 MMOL/L (3.5-5.1); SODIUM LEVEL 138 MMOL/L (136-145); TOTAL PROTEIN 6.5 G/DL (5.7-8.2)
[2023-02-06 15:58] LABS: FERRITIN 58.9 NG/ML (10.5-307.3)
[2023-02-09 18:08] LABS: TESTOSTERONE FREE (DIRECT) 24.5 pg/mL (7.2-24.0)
== END ==
LOC: M PLALAB 12:24
PROVIDERS: ATTEND Family Medicine
DX: E29.1 Testicular hypofunction (principal)

== ENCOUNTER → 2023-02-06 | Outpatient (CLI) | payer BC | LOC: M CARPUL 13:02 | PROVIDERS: ATTEND Family Medicine | DX: I77.810 Thoracic aortic ectasia (principal) ==

== ENCOUNTER → 2023-05-25 | Outpatient (CLI) | payer BC ==
[2023-05-25 10:56] LABS: BASO % 0.5 % (0.0-1.0); EOS # 0.2 10^3/uL (0.0-0.5); EOS % 2.4 % (0.0-3.0); HEMATOCRIT 47.2 % (42.0-52.0); HEMOGLOBIN 15.8 g/dl (13.5-17.5); LYMPH # 2.1 10^3/uL (1.5-5.0); LYMPH % 26.2 % (24.0-44.0); MEAN CORPUSCULAR HEMOGLOBIN 30.3 pg (27.0-33.0); MEAN CORPUSCULAR HGB CONC 33.5 g/dl (32.0-36.5); MEAN CORPUSCULAR VOLUME 90.6 fl (80.0-96.0); MONO # 0.7 10^3/uL (0.0-0.8); NEUTROPHILS # 4.8 10^3/uL (1.5-8.5); NEUTROPHILS % 61.5 % (36.0-66.0); PLATELET COUNT, AUTOMATED 272 10^3/uL (150-450); RED BLOOD COUNT 5.21 10^6/uL (4.30-6.10); WHITE BLOOD COUNT 7.9 10^3/uL (4.0-10.0)
[2023-05-25 11:18] LABS: ALBUMIN 4.1 G/DL (3.2-5.2); ALKALINE PHOSPHATASE 64 U/L (46-116); ALT/SGPT 18 U/L (7.0-40); AST/SGOT < 8 U/L (<34); BLOOD UREA NITROGEN 22 MG/DL (9-23); CALCIUM LEVEL 9.2 MG/DL (8.5-10.1); CARBON DIOXIDE LEVEL 27 MMOL/L (20-31); CHLORIDE LEVEL 105 MMOL/L (98-107); CHOLESTEROL LEVEL 165 MG/DL (<200); CREATININE FOR GFR 0.99 MG/DL (0.70-1.30); FOLLICLE STIMULATING HORMONE 1.8 mIU/ML (1.4-18.1); GLOMERULAR FILTRATION RATE > 60.0 (>56); GLUCOSE, FASTING 82 MG/DL (60-100); HDL CHOLESTEROL 35.1 MG/DL (>40); LDL CHOLESTEROL 117.1 MG/DL (<100); NON-HDL-C 129.9 MG/DL; POTASSIUM SERUM 4.5 MMOL/L (3.5-5.1); PTH INTACT 43.9 PG/ML (18.5-88.0); SODIUM LEVEL 140 MMOL/L (136-145); TOTAL PROTEIN 6.7 G/DL (5.7-8.2); TRIGLYCERIDES LEVEL 64 MG/DL (<150)
[2023-05-25 11:19] LABS: LUTEINIZING HORMONE < 0.1 mIU/ML (1.5-9.3); TOTAL 25(OH) VITAMIN D 26.4 NG/ML (20.0-100.0)
[2023-05-26 15:10] LABS: TESTOSTERONE FREE (DIRECT) 16.4 pg/mL (7.2-24.0)
== END ==
LOC: M PLALAB 07:11
PROVIDERS: ATTEND Family Medicine
DX: E29.1 Testicular hypofunction (principal); E78.2 Mixed hyperlipidemia; E55.9 Vitamin D deficiency, unspecified; I10 Essential (primary) hypertension

== ENCOUNTER → 2024-01-26 | Outpatient (CLI) | payer BC ==
[2024-01-26 11:21] LABS: BASO % 0.4 % (0.0-1.0); EOS # 0.1 10^3/uL (0.0-0.5); EOS % 1.7 % (0.0-3.0); HEMATOCRIT 46.7 % (42.0-52.0); LYMPH # 1.8 10^3/uL (1.5-5.0); MEAN CORPUSCULAR HGB CONC 34.3 g/dl (32.0-36.5); MEAN CORPUSCULAR VOLUME 93.4 fl (80.0-96.0); MONO # 0.7 10^3/uL (0.0-0.8); MONO % 10.1 % (2.0-8.0); NEUTROPHILS # 4.4 10^3/uL (1.5-8.5); NEUTROPHILS % 62.4 % (36.0-66.0); PLATELET COUNT, AUTOMATED 261 10^3/uL (150-450)
[2024-01-26 11:58] LABS: ALBUMIN 3.8 G/DL (3.2-5.2); ALKALINE PHOSPHATASE 58 U/L (46-116); ALT/SGPT 18 U/L (7.0-40); AST/SGOT 11 U/L (<34); BILIRUBIN,TOTAL 1.2 MG/DL (0.3-1.2); BLOOD UREA NITROGEN 13 MG/DL (9-23); CALCIUM LEVEL 9.3 MG/DL (8.5-10.1); CARBON DIOXIDE LEVEL 31 MMOL/L (20-31); CHLORIDE LEVEL 106 MMOL/L (98-107); GLOMERULAR FILTRATION RATE > 60.0 (>56); GLUCOSE, FASTING 76 MG/DL (60-100); POTASSIUM SERUM 4.5 MMOL/L (3.5-5.1); PSA SCREENING 0.64 NG/ML (< 4.00); SODIUM LEVEL 137 MMOL/L (136-145); TOTAL PROTEIN 6.5 G/DL (5.7-8.2)
[2024-01-26 11:59] LABS: FREE T4 1.09 NG/DL (0.89-1.76)
[2024-01-26 12:00] LABS: ESTRADIOL 38.3 PG/ML (<39.8); THYROID STIMULATING HORMONE 0.903 uIU/ML (0.55-4.78)
[2024-01-27 10:12] LABS: TESTOSTERONE FREE (DIRECT) 8.6 pg/mL (7.2-24.0)
== END ==
LOC: M PLALAB 08:56
PROVIDERS: ATTEND Family Medicine
DX: E29.1 Testicular hypofunction (principal); Z12.5 Encounter for screening for malignant neoplasm of prostate; E78.2 Mixed hyperlipidemia
CPT/HCPCS: 36415; 80053; 82670; 84402; 84403; 84439; 84443; 85025; G0103

== ENCOUNTER → 2024-01-26 | Outpatient (CLI) | payer BC ==
[~2024-01-26] MED LIST changes: +TEST10GE TOP; -TEST1GEL10 TOP
== END ==
LOC: M PLAIMG 08:11
PROVIDERS: ATTEND Family Medicine
DX: I77.810 Thoracic aortic ectasia (principal)

== ENCOUNTER 2024-08-22 10:57 | Day surgery (SDC) | payer BC ==
[~2024-08-22] VITALS: Ht 177.8 cm; Wt 99.5 kg
[~2024-08-22 10:57] MED LIST changes: +CARV10CA PO; +LORA1TAB23 PO; +NS 250 ML IV ONE
[2024-08-22] MEDS ORDERED: LIDOCAINE 2% 100MG/5ML SDV (FOR ANES.) As Ordered ONE (11:12)
[2024-08-22] MEDS ORDERED: propofoL 200 MG/20 ML VIAL As Ordered ONE (11:12)
[2024-08-22 11:58] VITALS: TEMP 99
[2024-08-22 12:10] VITALS: BP 130/83; O2SAT 97
== END 2024-08-22 12:16 | disposition home or self-care (01) ==
LOC: M OPP 10:57
PROVIDERS: ATTEND Internal Medicine Gastroenterology
DX: Z12.11 Encounter for screening for malignant neoplasm of colon (principal); Z12.12 Encounter for screening for malignant neoplasm of rectum; K64.0 First degree hemorrhoids; K57.30 Diverticulosis of large intestine without perforation or abscess without bleeding; G47.30 Sleep apnea, unspecified; Z79.899 Other long term (current) drug therapy

== ENCOUNTER → 2024-12-26 | Outpatient (CLI) | payer BC ==
[~2024-12-26] MED LIST changes: -NS 250 ML IV ONE
[2024-12-26 11:14] LABS: BASO # 0.1 10^3/uL (0.0-0.2); BASO % 0.7 % (0.0-1.0); EOS # 0.1 10^3/uL (0.0-0.5); EOS % 1.8 % (0.0-3.0); HEMATOCRIT 46.2 % (42.0-52.0); HEMOGLOBIN 15.7 g/dl (13.5-17.5); LYMPH # 1.7 10^3/uL (1.5-5.0); MEAN CORPUSCULAR HEMOGLOBIN 31.5 pg (27.0-33.0); MEAN CORPUSCULAR VOLUME 92.6 fl (80.0-96.0); MONO # 0.8 10^3/uL (0.0-0.8); MONO % 9.8 % (2.0-8.0); NEUTROPHILS % 65.2 % (36.0-66.0); PLATELET COUNT, AUTOMATED 244 10^3/uL (150-450); RED BLOOD COUNT 4.99 10^6/uL (4.30-6.10); WHITE BLOOD COUNT 7.6 10^3/uL (4.0-10.0)
[2024-12-26 11:42] LABS: ALBUMIN 3.8 G/DL (3.2-5.2); ALKALINE PHOSPHATASE 73 U/L (40-129); ALT/SGPT 23 U/L (7.0-40); AST/SGOT 11 U/L (<34); BILIRUBIN,TOTAL 0.7 MG/DL (0.3-1.2); BLOOD UREA NITROGEN 14 MG/DL (9-23); CALCIUM LEVEL 9.1 MG/DL (8.5-10.1); CARBON DIOXIDE LEVEL 30 MMOL/L (20-31); CHLORIDE LEVEL 105 MMOL/L (98-107); CHOLESTEROL LEVEL 155 MG/DL (<200); CHOLESTEROL RISK RATIO 4.08 (<5); CREATININE FOR GFR 1.04 MG/DL (0.70-1.30); GLOMERULAR FILTRATION RATE > 60.0 (>56); GLUCOSE, FASTING 87 MG/DL (60-100); HDL CHOLESTEROL 37.9 MG/DL (>40); LDL CHOLESTEROL 101.1 MG/DL (<100); NON-HDL-C 117.1 MG/DL; POTASSIUM SERUM 4.5 MMOL/L (3.5-5.1); PTH INTACT 46.4 PG/ML (18.5-88.0); SODIUM LEVEL 141 MMOL/L (136-145); TOTAL PROTEIN 6.6 G/DL (5.7-8.2); TRIGLYCERIDES LEVEL 80 MG/DL (<150)
[2024-12-26 11:43] LABS: ESTRADIOL 47.8 PG/ML (<39.8)
[2024-12-26 11:44] LABS: FERRITIN 57.9 NG/ML (10.5-307.3); TOTAL 25(OH) VITAMIN D 23.8 NG/ML (20.0-100.0)
== END ==
LOC: M PLALAB 07:48
PROVIDERS: ATTEND Family Medicine
DX: E29.1 Testicular hypofunction (principal); D75.89 Other specified diseases of blood and blood-forming organs; E78.2 Mixed hyperlipidemia; E55.9 Vitamin D deficiency, unspecified

== ENCOUNTER → 2025-03-03 | Outpatient (REF) | payer BC | LOC: M SFHCPLAZ 15:21 | DX: J06.9 Acute upper respiratory infection, unspecified (principal) ==